=== PATIENT | male | born 1930 | race Caucasian/White ===

== ENCOUNTER → 2017-02-01 | Outpatient (CLI) | payer OTHER, MEDICARE ==
--- NOTE | 2017-02-01 12:52 | CT ---
HISTORY: Sinusitis Study: CT sinuses without contrast Comparison: None Technique: Axial non contrast images with coronal and sagittal reformats. Dose reduction procedures were used with MA/kv adjusted for body size. Findings: There is complete opacification of the right frontal sinuses likely inflammatory in origin. The left frontal sinuses are clear. The ethmoid sinuses are clear. There is extensive mucosal abnormality an d also some air-fluid levels in the sphenoid sinuses bilaterally suggestive of acute sphenoid sinusi tis. Mucosal inflammatory changes are present in the left maxillary sinus. The right maxillary sinus is somewhat hypo plastic but demonstrates mucosal inflammatory changes. There is mild leftward nasa l septal deviation. IMPRESSION: Extensive paranasal sinus inflammatory disease with complete opacification of the right frontal sinu ses likely inflammatory in origin, air-fluid levels in the sphenoid sinuses bilaterally consistent w ith acute sphenoid sinusitis, and extensive mucosal inflammatory changes in the maxillary sinuses bi laterally. Reported By:
== END ==
LOC: RAD 10:45
PROVIDERS: ATTEND Otolaryngology
DX: J32.8 Other chronic sinusitis (principal); J33.8 Other polyp of sinus
CPT/HCPCS: 70486